=== PATIENT | female | born 1995 | race Hispanic/Latino ===

== ENCOUNTER 2023-04-04 16:45 | Emergency (ER) | payer OTHER ==
--- OUTSIDE RECORDS SUMMARY | 2023-04-04 16:47 | XMS REPORT | Continuity of Care Document ---
:1995 Author Organization [facility] Address [address] [place] [id number] Care Team Providers Name Role Phone JORGE Attending Clinician Unavailable JORGE Admitting Clinician Unavailable Payers Payer Name Policy Type Policy Number Effective Date Expiration Date millicent [facility] - [id number] STAR (MEDICAID HMO) Problems This patient has no known problems. Allergies, Adverse Reactions, Alerts This patient has no known allergies or adverse reactions. Medications This patient has no known medications. Procedures This patient has no known procedures. Encounters Start End Encounter Admission Attending Care Care Encounter Source Date/Time Date/Time Type Type Clinicians Facility Department ID 2022-01-02 2022-01-02 Outpatient [facility] [phone] [place] 12:41:00 12:41:00 EM_ [id number] [facility] l [facility] Results This patient has no known results.
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
[2023-04-04] MEDS ORDERED: KETOROLAC 30 MG/ML INJ ONE (18:19)
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
[2023-04-04] MEDS ORDERED: HYDROCODONE/APAP 7.5/325 MG TAB ONE (19:31)
[2023-04-04 19:43] VITALS: TEMP 98.6
[2023-04-04 19:46] VITALS: BP 122/75; O2SAT 99
== END 2023-04-04 19:29 | disposition home or self-care (01) ==
LOC: ER 16:45
DX: R29.91 Unspecified symptoms and signs involving the musculoskeletal system (principal); E11.40 Type 2 diabetes mellitus with diabetic neuropathy, unspecified; Z79.4 Long term (current) use of insulin
CPT/HCPCS: 71046; 96372; 99284